=== PATIENT | female | born 1975 | race Caucasian/White ===

== ENCOUNTER → 2018-04-18 | Outpatient (CLI) | payer BC | LOC: MC.RAD 14:17 | DX: Z12.31 Encounter for screening mammogram for malignant neoplasm of breast (principal) ==

== ENCOUNTER → 2020-04-05 | Outpatient (CLI) | payer BC | LOC: ZCOL.LAB 17:02 | DX: Z20.828 Contact with and (suspected) exposure to other viral communicable diseases (principal) ==